=== PATIENT | female | born 1960 | race Caucasian/White ===

== ENCOUNTER 2022-09-19 02:42 | Emergency (ER) | payer OTHER ==
[~2022-09-19] VITALS: Ht 162.6 cm; Wt 68.5 kg
[2022-09-19 02:50] VITALS: BP 163/64
--- NOTE | 2022-09-19 02:53 | NUR ---
to bed ambulatory
--- NOTE | 2022-09-19 03:00 | NUR ---
RECEIVED IN BED 12 WITH C/P HIGH BP FOR 2 Days
[2022-09-19] MEDS ORDERED: CLONIDINE HYDROCHLORIDE 0.1 MG TAB PO ONE (03:15)
[2022-09-19] MEDS ORDERED: MECLIZINE 25 MG TAB PO ONE (03:15)
[2022-09-19 03:48] LABS: BASOPHILS % (AUTO) 0.7 % (0.0-2.0); EOSINOPHILS # (AUTO) 0.2 K/uL (0-0.4); EOSINOPHILS % (AUTO) 2.5 % (0.0-4.0); HEMATOCRIT 36.8 % (36-48); LYMPHOCYTES # (AUTO) 1.6 K/uL (2.5-16.5); LYMPHOCYTES % (AUTO) 22.6 % (20.5-51.1); MEAN CORPUSCULAR HEMOGLOBIN 32 pg (27-31); MEAN CORPUSCULAR HGB CONC 35 g/dL (33-37); MEAN CORPUSCULAR VOLUME 89.8 fL (80-94); MONOCYTES # (AUTO) 0.6 K/uL (0.8-1.0); MONOCYTES % (AUTO) 8.9 % (1.7-9.3); NEUTROPHILS # (AUTO) 4.5 K/uL (1.8-7.7); NEUTROPHILS % (AUTO) 65.3 % (42.2-75.2); PLATELET COUNT (AUTO) 286 K/uL (140-450); RED CELL DISTRIBUTION WIDTH 13.2 % (11.6-13.7); WHITE BLOOD COUNT (AUTO) 6.9 K/uL (4.8-10.8)
[2022-09-19 04:13] LABS: ALBUMIN 4.5 g/dL (3.4-5.0); CREATININE 0.7 mg/dL (0.6-1.3); TOTAL BILIRUBIN 0.4 mg/dL (0.0-1.0)
[2022-09-19] MEDS ORDERED: ASPIRIN 325 MG TAB PO ONE (04:30)
[2022-09-19] MEDS ORDERED: ASPI-1822 PO (05:16)
[2022-09-19 05:25] VITALS: BP 160/84
--- NOTE | 2022-09-19 05:25 | NUR ---
Patient discharged with v/s stable. Written and verbal after care instructions given and explained. Patient alert, oriented and verbalized understanding of instructions. Ambulatory with steady gait. All questions addressed prior to discharge. ID band removed. Patient advised to follow up with PMD. Rx of ASPIRIN given. Patient educated on indication of medication including possible reaction and side effects. Opportunity to ask questions provided and answered.
[2022-09-19] MEDS ORDERED: ACET-10509 PO (13:53)
[2022-09-19] MEDS ORDERED: AMLO5TAB PO (13:53)
== END 2022-09-19 05:25 | disposition home or self-care (01) ==
LOC: MED 02:42
DX: I10 Essential (primary) hypertension (principal); R07.89 Other chest pain; M79.602 Pain in left arm; R42 Dizziness and giddiness; Z79.899 Other long term (current) drug therapy
CPT/HCPCS: 36415; 71045; 80053; 83880; 84484; 85025; 93005; 99285; J8597

== ENCOUNTER 2022-09-19 11:27 | Emergency (ER) | payer OTHER ==
[~2022-09-19] VITALS: Ht 157.5 cm; Wt 68.0 kg
[~2022-09-19 11:27] MED LIST: ASPI-1822 PO
[2022-09-19 11:32] VITALS: BP 150/59
--- NOTE | 2022-09-19 12:32 | NUR ---
62YO FEMALE PT C/O HIGH BP AND L UPPER CHEST PAIN X1WEEK. RADIATION TO L UNDER ARM. STATES BEING RECOMMENDED BY PCP TO COME TO ER FOR BP. NOTES INTERMITTENT SOB AND NAUSEA. REPORTS RECENTLY STARTING NEW RX OF HYDROCHOROTHIAZIDE. DENIES N/V/D, INJURY, FEVER OR CHILLS. PT AAOX4, RESIPIRATIONS EVEN AND UNLABORED. HOB POSITIONED PER COMFORT. PT RECENTLY SEEN EARLIER TODAY IN ER FOR S/S. HX: DIABETES, HTN HLD NKA
[2022-09-19] MEDS ORDERED: KETOROLAC 15 MG/ML VIAL IM ONE (13:25)
[2022-09-19 13:51] VITALS: BP 151/71
[2022-09-19] MEDS ORDERED: AMLO5TAB PO (13:53)
[2022-09-19] MEDS ORDERED: ACET-10509 PO (13:53)
--- NOTE | 2022-09-19 14:15 | NUR ---
Patient discharged with v/s stable. Written and verbal after care instructions FOR NON SPECIFIC CHEST PAIN given and explained. Patient alert, oriented and verbalized understanding of instructions. Ambulatory with steady gait. All questions addressed prior to discharge. ID band removed. Patient advised to follow up with PMD. Rx of NORVASC AND TYLENOL XTRA STRENGTH given. Opportunity to ask questions provided and answered.
--- NOTE | 2022-09-19 14:16 | NUR ---
The patient's care was reviewed and supervised by Iris Rich RN.
== END 2022-09-19 14:15 | disposition home or self-care (01) ==
LOC: MED 11:27
DX: R07.89 Other chest pain (principal); M25.512 Pain in left shoulder; E11.9 Type 2 diabetes mellitus without complications; I10 Essential (primary) hypertension; Z79.4 Long term (current) use of insulin; Z79.899 Other long term (current) drug therapy
CPT/HCPCS: 36415; 84484; 93005; 96372; 99284; J1885

== ENCOUNTER 2022-10-15 08:07 | Emergency (ER) | payer OTHER ==
[~2022-10-15] VITALS: Ht 167.6 cm; Wt 65.4 kg
[~2022-10-15 08:07] MED LIST changes: +ACET-10509 PO; +AMLO5TAB PO
[2022-10-15 08:09] VITALS: BP 146/70
--- NOTE | 2022-10-15 08:16 | NUR ---
PT AMB TO BED 4.
[2022-10-15 09:33] LABS: BASOPHILS % (AUTO) 0.4 % (0.0-2.0); EOSINOPHILS # (AUTO) 0.2 K/uL (0-0.4); EOSINOPHILS % (AUTO) 3.8 % (0.0-4.0); HEMATOCRIT 39.3 % (36-48); HEMOGLOBIN 13.5 g/dL (12.0-16.0); LYMPHOCYTES # (AUTO) 1.2 K/uL (2.5-16.5); MEAN CORPUSCULAR HEMOGLOBIN 32 pg (27-31); MEAN CORPUSCULAR HGB CONC 35 g/dL (33-37); MONOCYTES # (AUTO) 0.5 K/uL (0.8-1.0); NEUTROPHILS # (AUTO) 3.6 K/uL (1.8-7.7); NEUTROPHILS % (AUTO) 65.8 % (42.2-75.2); PLATELET COUNT (AUTO) 285 K/uL (140-450); RED BLOOD CELL COUNT(AUTO) 4.27 MIL/uL (4.20-5.40); RED CELL DISTRIBUTION WIDTH 13.1 % (11.6-13.7); WHITE BLOOD COUNT (AUTO) 5.5 K/uL (4.8-10.8)
[2022-10-15 09:41] LABS: ALBUMIN 4.3 g/dL (3.4-5.0); ANION GAP 11.5 (8-16); CARBON DIOXIDE 29.9 mmol/L (21-32); CREATININE 0.8 mg/dL (0.6-1.3); POTASSIUM 4.4 mmol/L (3.5-5.1); TOTAL BILIRUBIN 0.3 mg/dL (0.0-1.0)
[2022-10-15] MEDS ORDERED: IBUP-2213 PO (09:49)
--- NOTE | 2022-10-15 09:58 | NUR ---
Female [employer] Teacher accompanied female patient for BREAST Exam.
--- NOTE | 2022-10-15 14:07 | NUR ---
Patient discharged with v/s stable. Written and verbal after care instructions given and explained. Patient verbalized understanding. Ambulatory with steady gait. All questions addressed prior to discharge. Advised to follow up with PMD. Addendum: 10/15/22 at 1410 by [email or web address] addendum [id number]
== END 2022-10-15 10:20 | disposition home or self-care (01) ==
LOC: MED 08:07
DX: N64.4 Mastodynia (principal); I10 Essential (primary) hypertension; E11.9 Type 2 diabetes mellitus without complications; Z79.84 Long term (current) use of oral hypoglycemic drugs; Z79.82 Long term (current) use of aspirin; Z79.899 Other long term (current) drug therapy
CPT/HCPCS: 36415; 71250; 80053; 85025; 99284